=== PATIENT | female | born 1980 | race Caucasian/White ===

== ENCOUNTER 2018-01-12 11:16 | Emergency (ER) | payer OTHER ==
[~2018-01-12] VITALS: Ht 160 cm; Wt 54.5 kg
[2018-01-12] MEDS ORDERED: ALBU8HFA IH (11:26)
[2018-01-12] MEDS ORDERED: POVIDONE-IODINE 10% 15 ML SOLUTION UD TP ONE (12:30)
[2018-01-12] MEDS ORDERED: LIDOCAINE HCL 1% 10 ML VIAL INJ ONE (12:30)
[2018-01-12] MEDS ORDERED: IBUPROFEN 800 MG TABLET PO ONE (12:30)
[2018-01-12 13:15] VITALS: BP 104/64
== END 2018-01-12 13:54 | disposition home or self-care (01) ==
LOC: EMS 11:17
DX: L02.214 Cutaneous abscess of groin (principal); J45.909 Unspecified asthma, uncomplicated
CPT/HCPCS: 99283; J3490